=== PATIENT | male | born 1980 | race Caucasian/White ===

== ENCOUNTER 2018-01-06 06:06 | Day surgery (SDC) | payer OTHER ==
[2017-12-25 17:09] VITALS: BMI 43.7
[2018-01-06 06:32] VITALS: TEMP 97.7
[2018-01-06] MEDS ORDERED: BUPIVACAINE HCL/PF 0.5% (5MG/ML) 10 ML VIAL ONE (07:05)
[2018-01-06] MEDS ORDERED: PROPOFOL 20 ML ONE (07:15)
[2018-01-06] MEDS ORDERED: MIDAZOLAM HCL 2 MG/2 ML SINGLE DOSE VIAL ONE (07:15)
[2018-01-06] MEDS ORDERED: DEXAMETHASONE SOD PHOSPHATE 4 MG/1 ML VIAL ONE (07:15)
[2018-01-06] MEDS ORDERED: fentaNYL CITRATE 250 MCG/5 ML VIAL ONE (07:15)
[2018-01-06] MEDS ORDERED: SUCCINYLCHOLINE CHLORIDE 200 MG/10 ML VIAL ONE (07:15)
[2018-01-06] MEDS ORDERED: LIDOCAINE HCL/PF 2% SDV 5ML VIAL ONE (07:15)
[2018-01-06] MEDS ORDERED: ROCURONIUM BROMIDE 50 MG/5 ML VIAL ONE ×2 (07:15→09:14)
[2018-01-06] MEDS ORDERED: ONDANSETRON 4 MG/2 ML VIAL IVPUSH PRN (07:33)
[2018-01-06] MEDS ORDERED: LACTATED RINGERS SOLUTION 1,000 ML IV SCH (07:45)
--- NOTE | 2018-01-06 07:51 | HP ---
History & Physical Update - History History: No Change - Physical Physical: No Change - Assessment Assessment: No Change - Plan Plan: No Change <Chandu Aguilar - Last Filed: 01/06/18 07:51> - Plan Currently as noted:: Robotic possible open umbilical hernia repair with mesh <Nilton Watts - Last Filed: 01/06/18 14:21>
[2018-01-06] MEDS ORDERED: ceFAZolin SODIUM 1 GM VIAL IVPB ONE (08:40)
[2018-01-06] MEDS ORDERED: DESFLURANE GAS 240 ML BOTTLE IH ONE (08:51)
[2018-01-06] MEDS ORDERED: ceFAZolin SODIUM 1 GM VIAL ONE (09:06)
[2018-01-06] MEDS ORDERED: BUPIVACAINE HCL/PF (5 MG/ML) 30 ML VIAL IJ ONE ×2 (09:16→11:02)
[2018-01-06] MEDS ORDERED: GLYCOPYRROLATE 0.2 MG/1 ML VIAL ONE (10:48)
[2018-01-06] MEDS ORDERED: NEOSTIGMINE METHYLSULFATE 0.5 MG/ML - 10 ML MDV ONE (10:48)
--- NOTE | 2018-01-06 11:16 | OP ---
<Chandu Aguilar - Last Filed: 01/06/18 11:15> Operative Note - Note: Operative Date: 01/06/18 Pre-Operative Diagnosis: Umbilical hernia Operation: Robotic assisted umbilical hernia repair Surgeon: Nilton Watts Activities Director Scouting: Chandu Aguilar Anesthesiologist/CUSTOMER SERVICE OFFICER: Jacob Wisdom Anesthesia: General Estimated Blood Loss (mls): 10 Fluid Volume Replaced (mls): 900 Operative Report Dictated: Yes <Nilton Watts - Last Filed: 01/06/18 14:25> Operative Note - Note: Operation: Robotic umbilical hernia repair with mesh, omentectomy
[2018-01-06] MEDS ORDERED: ONDANSETRON 4 MG/2 ML VIAL ONE (11:29)
[2018-01-06] MEDS ORDERED: ONDANSETRON 4 MG/2 ML VIAL IVPUSH ONE (12:15)
[2018-01-06] MEDS ORDERED: oxyCODONE HCL 5 MG TABLET PO PRN (13:56)
[2018-01-06 15:20] VITALS: BP 139/80; PULSE 90
--- NOTE | 2018-01-06 15:52 | OP ---
DATE OF OPERATION: 01/06/2018 SURGEON: Chelsie Watts MD AGENCY OPERATOR: Chandu Aguilar PA-C PREOPERATIVE DIAGNOSIS: Umbilical/ventral hernia. POSTOPERATIVE DIAGNOSIS: Umbilical/ventral hernia. PROCEDURE: 1. Robotic repair of umbilical/ventral hernia with 12-cm Symbotex mesh. 2. Omentectomy. SPECIMEN: Omentum. ESTIMATED BLOOD LOSS: 10 mL DRAIN: None. ANESTHESIA: GET. REASON FOR PROCEDURE: This is a 37-year-old gentleman, who presented for evaluation of umbilical/ventral hernia. He states that he noted that the injury occurred at work. He felt a pain after lifting material at work, and he was noted to have a hernia at the time. I view of this, he was consented for robotic, possible open repair of his umbilical/ventral hernia repair with mesh. The risks and benefits of the procedure were explained. These included bleeding, infection, recurrence of the hernia, MN, DVT, PE, injury to surrounding structures including bowel, vessel injury, nerve injury. The risks of recurrence as well as other possible risks were increased because of his morbid obesity as well. This was explained to him. He understood and signed informed consent. DESCRIPTION OF PROCEDURE: The patient was placed supine on the operating room table. He underwent general endotracheal intubation. The abdomen was prepped and draped in usual sterile fashion. Timeout was performed. An incision was made in the left upper quadrant. Pneumoperitoneum established with a Veress needle. Subsequently, the Veress needle was removed, and an 8-mm robotic trocar was placed under direct visualization with the laparoscope. Two further 8-mm trocars were placed in the left lateral and left lower quadrants. The patient was placed in slight right lateral decubitus position. The robot was brought over and docked. Immediately, it was noted that there was an umbilical/ventral hernia with content. Dissection was then performed at the console using rl and double-fenestrated bipolar. A flap was created, freeing the umbilicus and its contents from the fascial defect. The hernia contents were carefully cleared and pulled within. The omentum as well as fat was freed and taken off using electrocautery with scissors. The flap was further dissected down and freed for the placement of the mesh. The fascia was closed primarily using a number 1 V-Loc Vicryl suture. Once primary closure was obtained, a 12-cm Symbotex mesh was chosen and secured in place. The flap was then pulled over the repair and the flap closed using 2-0 Vicryl suture. The omentum was placed in an Endo Catch bag and removed from the abdominal cavity. The patient tolerated the procedure well. The robot was undocked. All needles were accounted for. Pneumoperitoneum was desufflated. Patient tolerated the procedure well, and 4-0 Biosyns were used to close the skin after Marcaine was injected. He was transferred to recovery room in stable condition. CHELSIE WATTS M.D. [id number]
--- NOTE | 2018-01-08 17:10 | PATH ---
Surgical Pathology Report Patient Name: SHREYA PENDLETON [facility]. Rec. #: [id number] /Age/Gender: 1980 (Age: 37) / M Account: [id number] Location: [facility] SURGICAL Taken: 01/06/2018 Received: 01/06/2018 Reported: 01/08/2018 Physicians: Nilton Watts M.D. Specimen(s) Received HERNIA CONTENTS Clinical History Umbilical hernia Final Diagnosis HERNIA CONTENTS, ROBOTIC LAPAROSCOPIC UMBILICAL HERNIA REPAIR: MESOTHELIAL LINED FIBROMEMBRANOUS TISSUE CONSISTENT WITH HERNIA SAC. Electronically Signed Sole Hillman M.D. Gross Description Received in formalin labeled "hernia contents," is a 4.7 x 3.5 x 2.4 cm portion of farmer-mcintyre fibromembranous tissue with attached fat, consistent with a hernia sac. Pasteurizing Machine Operator sections are submitted in one cassette. /01/07/2018 saudi01/07/2018
== END 2018-01-06 15:00 | disposition home or self-care (01) ==
LOC: JASU-SURG 06:06
PROVIDERS: ATTEND Surgery
PROC: 8E0W4CZ Robotic Assisted Procedure of Trunk Region, Percutaneous Endoscopic Approach (ICD-10-PCS; 2018-01-06)
PROC: 0WUF4JZ Supplement Abdominal Wall with Synthetic Substitute, Percutaneous Endoscopic Approach (ICD-10-PCS; principal; 2018-01-06 08:00)
DX: K42.9 Umbilical hernia without obstruction or gangrene (principal)
CPT/HCPCS: 49652; S2900; 88302-TC; 94760

== ENCOUNTER 2020-03-14 14:13 | Emergency (ER) | payer OTHER ==
[2020-03-14 14:21] VITALS: BMI 48.7
[2020-03-14] MEDS ORDERED: CEFTRIAXONE 1,000 MG in DEXTROSE 5%-WATER - 50 ML IVPB ONE (15:32)
[2020-03-14 15:40] LABS: BASO % 1.2 % (0-2.0); HEMATOCRIT 45.3 % (35.4-49); HEMOGLOBIN 15.4 GM/dL (11.7-16.9); LYMPH % 22.4 % (8-40); MCH 31.9 pg (25.7-33.7); MEAN CELL VOLUME 93.8 fl (80-96); MEAN PLT VOLUME 8.1 fl (7.5-11.1); MONO % 4.5 % (3.8-10.2); NEUT % 68.9 % (42.8-82.8); PLATELET COUNT 247 K/MM3 (134-434); RBC 4.83 M/mm3 (4.00-5.60); RDW 13.6 % (11.9-15.9); WHITE BLOOD COUNT 10.8 K/mm3 (4.0-10.0)
[2020-03-14 15:53] LABS: INR 1.03 (0.83-1.09); PROTHROMBIN TIME (PATIENT) 12.5 SEC (9.7-13.0)
[2020-03-14 15:56] LABS: ACTIVATED PTT 32.8 SECONDS (25.2-36.5)
[2020-03-14 16:00] LABS: URINE APPEARANCE CLEAR; URINE BILIRUBIN NEGATIVE (NEGATIVE); URINE COLOR YELLOW; URINE GLUCOSE (UA) NEGATIVE (NEGATIVE); URINE KETONE NEGATIVE (NEGATIVE); URINE LEUK ESTERASE NEGATIVE (NEGATIVE); URINE NITRITE NEGATIVE (NEGATIVE); URINE PROTEIN NEGATIVE (NEGATIVE); URINE UROBILINOGEN 0.2 mg/dL (0.2-1.0)
[2020-03-14 16:02] LABS: CHLORIDE 102 mmol/L (98-107); POTASSIUM 4.2 mmol/L (3.5-5.1); SODIUM 139 mmol/L (136-145)
[2020-03-14 16:07] LABS: ANION GAP 5 MMOL/L (8-16); BLOOD UREA NITROGEN 13.3 mg/dL (7-18); CALCIUM 9.5 mg/dL (8.5-10.1); CO2 32 mmol/L (21-32); MAGNESIUM 2.2 mg/dL (1.8-2.4)
[2020-03-14 16:08] LABS: GLUCOSE,RANDOM 94 mg/dL (74-106)
[2020-03-14 16:10] LABS: SGOT/AST 28 U/L (15-37); SGPT/ALT 80 U/L (13-61)
[2020-03-14 16:11] LABS: CREATININE 0.9 mg/dL (0.55-1.3)
[2020-03-14 16:12] LABS: BILIRUBIN,TOTAL 0.6 mg/dL (0.2-1); TOT PROT 7.6 g/dl (6.4-8.2)
[2020-03-14 16:13] LABS: ALK PHOS 96 U/L (45-117)
[2020-03-14 16:53] VITALS: BP 140/92; PULSE 75; TEMP 97.1
[2020-03-14 17:12] LABS: N-TERMINAL BNP 39.2 pg/ml (5-125)
== END 2020-03-14 18:13 | disposition home or self-care (01) ==
LOC: JER 14:13
DX: R06.02 Shortness of breath (principal)
CPT/HCPCS: 36415; 71046-TC-FY; 80053; 81003; 82550; 83735; 83880; 84484; 85025; 85610; 85730; 93005; 93010; 99285-25; C9803; U0003